=== PATIENT | male | born 1980 | race Caucasian/White ===

== ENCOUNTER 2017-07-09 00:51 | Emergency (ER) | payer OTHER ==
[2017-07-09 01:28] VITALS: BP 121/82; PULSE 85; TEMP 98.1; BMI 22.0
--- NOTE | 2017-07-09 02:12 | PDOC ---
Attending Attestation - Resident Resident Name: Rayna Byers - ED Attending Attestation I have performed the following: I have examined & evaluated the patient, The case was reviewed & discussed with the resident, I agree w/resident's findings & plan, Exceptions are as noted - HPI HPI: 07/09/17 02:07 Hemorrhoid - Physicial Exam PE: 07/09/17 02:07 Thrombosed Hemorrhoids, Large - Medical Decision Making 07/09/17 02:[address] Byers's Assessment and Plan Discharge Disposition - Discharge Dispostion Condition at time of disposition: Fair - Prescriptions Prescriptions: Oxycodone HCl/Acetaminophen [Percocet 5-325 mg Tablet] 1 - 2 tab PO Q4H #20 tablet MDD 6 Hydrocortisone/Pramoxine [Proctofoam-Hc Foam] 10 gm RC QID #2 foam Ondansetron [Zofran *Odt*] 8 mg SL TID #30 od.tablet - Patient Instructions Printed Discharge Instructions: DI for Hemorrhoids Additional Instructions: Paty- Sorry this happened to you .... it hurts! Follow up with General Surgery..... Call [phone] and ask for the next available appointment. Off work for a few days. Sits Baths, shallow tub with warm water- preparation H Proctofoam Percocet and Zofran I hope you are feeling better really soon- Dr. Jorge Posada - Post Discharge Activity Work/School Note: Back to Work
--- NOTE | 2017-07-09 02:16 | PDOC ---
History of Present Illness - General Chief Complaint: Hemorrhoids Stated Complaint: BLOOD IN STOOL Time Seen by Provider: 07/09/17 01:33 History Source: Patient Exam Limitations: No Limitations - History of Present Illness Initial Comments: 36yo M with no significant PMH presents c/o hemorrhoid. Pt reports rectal pain radiating up back and down to hips started yesterday and has been getting worse. He rates the pain 12/10. He took Ibuprofen last night which did not relieve the pain. Family history of brothers and father with hemorrhoids. Pt denies fever, rectal bleeding, hematochezia. 07/09/17 02:42 Associated Symptoms: denies: chest pain, cough, diaphoresis, fever/chills, headaches, nausea/vomiting, rash, shortness of breath, syncope, weakness Past History - Past Medical History Allergies/Adverse Reactions: Allergies Allergy/AdvReac Type Severity Reaction Status Date / Time No Known Allergies Allergy Verified 07/09/17 01:28 Home Medications: Ambulatory Orders Hydrocortisone/Pramoxine [Proctofoam-Hc Foam] 10 gm RC QID #2 foam 07/09/17 Ondansetron [Zofran *Odt*] 8 mg SL TID #30 od.tablet 07/09/17 Oxycodone HCl/Acetaminophen [Percocet 5-325 mg Tablet] 1 - 2 tab PO Q4H #20 tablet MDD 6 07/09/17 Other medical history: Denies - Surgical History Orthopedic Surgery: Yes (hip replacement 2005) - Family Disease History Family Disease History: Other: Father (hemorrhoid), Brother (hemorrhoid) - Immunization History Immunization Up to Date: No - Psycho/Social/Smoking Cessation Hx Anxiety: No Suicidal Ideation: No Smoking Status: Yes ([facility] 3-4 times per day) Smoking History: Current some day smoker Have you smoked in the past 12 months: Yes Number of Cigarettes Smoked Daily: 0 Information on smoking cessation initiated: No 'Breaking Loose' booklet given: 11/12/14 Hx Alcohol Use: No Drug/Substance Use Hx: No Substance Use Type: None Review of Systems - Review of Systems Constitutional: No: Chills, Diaphoresis, Fever HEENTM: No: Recent change in vision, Ear Pain, Nose Pain, Throat Pain Respiratory: No: Cough, Shortness of Breath, Stridor, Wheezing, Hemoptysis Cardiac (ROS): No: Chest Pain, Edema, Irregular Heart Rate, Palpitations ABD/GI: No: Abdominal Distended, Constipated, Diarrhea, Nausea, Vomiting, Abdominal cramping : No: Burning, Dysuria, Hematuria Neurological: No: Headache, Weakness, Unsteady Gait *Physical Exam - Vital Signs Last Vital Signs Temp Pulse Resp BP Pulse Ox 98.1 F 85 19 121/82 100 07/09/17 01:07/09/17 01:07/09/17 01:07/09/17 01:07/09/17 01:25 - Physical Exam General Appearance: Yes: Nourished, Appropriately Dressed, Moderate Distress ( pt unable to sit or stand still, pt pacing around room during interview) HEENT: positive: EOMI, Normal Voice, Other (moist mucous membranes). negative: Pale Conjunctivae, Scleral Icterus (R), Scleral Icterus (L) Neck: positive: Trachea midline, Supple Respiratory/Chest: positive: Lungs Clear, Normal Breath Sounds. negative: Respiratory Distress, Accessory Muscle Use Cardiovascular: positive: Regular Rhythm, Regular Rate, S1, S2. negative: Murmur Gastrointestinal/Abdominal: positive: Soft. negative: Distended, Guarding, Rebound, Tenderness Rectal Exam: positive: hemorrhoids (external, thrombosed, 2 large hemorrhoids visible spanning from 6 o'clock to 9 o'clock in a counterclockwise manner ( spanning 3/4 of the rectal opening)) Musculoskeletal: positive: Normal Inspection Neurologic: positive: Fully Oriented, Alert, Normal Response, Motor Strength 5/5 Medical Decision Making - Medical Decision Making 36yo M with no significant PMH presents c/o hemorrhoids. Large external, thrombosed hemorrhoids visible on exam. Pt has family history of father and brothers with hemorrhoids. Pt very uncomfortable during exam, pacing around the room 2/2 pain. Pt can go home with prescription for Procto-foam HC for hemorrhoid, Percocet for pain, and Zofran prn for nausea. Pt advised to f/u with General Surgery . 07/09/17 02:56 *DC/Admit/Observation/Transfer Diagnosis at time of Disposition: Hemorrhoids, external, thrombosed - Discharge Dispostion Condition at time of disposition: Fair Admit: No - Prescriptions Prescriptions: Oxycodone HCl/Acetaminophen [Percocet 5-325 mg Tablet] 1 - 2 tab PO Q4H #20 tablet MDD 6 Hydrocortisone/Pramoxine [Proctofoam-Hc Foam] 10 gm RC QID #2 foam Ondansetron [Zofran *Odt*] 8 mg SL TID #30 od.tablet - Referrals Referrals: Jane Spencer MD [Primary Care Provider] - - Patient Instructions Printed Discharge Instructions: DI for Hemorrhoids Additional Instructions: Follow-up with your Primary Care Doctor and see a General Surgeon regarding having these hemorroids removed. Please fill prescription for Proctofoam and apply as directed. Please sit in a shallow tub of warm water with epson's salts (or baking soda) several times a day. Please get Tucks pads from your local drug store and use as directed. Please consider getting a donut pillow to sit on. - Post Discharge Activity Work/School Note: Back to Work
== END 2017-07-09 02:37 | disposition home or self-care (01) ==
LOC: JER 00:51
DX: K64.5 Perianal venous thrombosis (principal); F17.210 Nicotine dependence, cigarettes, uncomplicated
CPT/HCPCS: 99282-25

== ENCOUNTER 2018-04-07 07:22 | Emergency (ER) | payer OTHER ==
[2018-04-07 07:31] VITALS: BP 114/71; PULSE 68; TEMP 97; BMI 22.8
--- NOTE | 2018-04-07 07:48 | PDOC ---
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 Sean Worrell @[facility]) presents to the ED with concern that his anterior neck wound has opened up. Pt states his wound was already beginning to open up last week when he last saw his surgeon and he was prescribed bactrim and amox which he is still taking. This morning when changing his dressing, he noticed the wound was a little bit more open which prompted him to presents the emergency department. Patient denies any fevers, chills, nausea, vomiting, increased redness to the area. He denies any discharge from the wound. Denies any other symptoms of headache, weakness, chest pain, shortness of breath, abdominal pain. Past History - Past Medical History Allergies/Adverse Reactions: Allergies Allergy/AdvReac Type Severity Reaction Status Date / Time No Known Allergies Allergy Verified 04/07/18 07:24 Home Medications: Ambulatory Orders Oxycodone HCl/Acetaminophen [Percocet 5-325 mg Tablet] 1 - 2 tab PO Q4H #20 tablet MDD 6 07/09/17 Amoxicillin/Potassium Clav [Augmentin 875-125 Tablet] 1 each PO ASDIR 04/07/18 Sulfamethoxazole/Trimethoprim [Bactrim Ds -] 1 tab PO BID 04/07/18 COPD: No - Surgical History Orthopedic Surgery: Yes (hip replacement 2005) - Family Disease History Family Disease History: Other: Father (hemorrhoid), Brother (hemorrhoid) - Immunization History Immunization Up to Date: No - Suicide/Smoking/Psychosocial Hx Smoking Status: Yes ([facility] 3-4 times per day) Smoking History: Current some day smoker Have you smoked in the past 12 months: Yes Number of Cigarettes Smoked Daily: 0 Information on smoking cessation initiated: Yes 'Breaking Loose' booklet given: 11/12/14 Hx Alcohol Use: No Drug/Substance Use Hx: No Substance Use Type: None Review of Systems - Review of Systems Comments:: 04/07/18 08:07 GENERAL/CONSTITUTIONAL: No fever or chills. No weakness. HEAD, EYES, EARS, NOSE AND THROAT: No change in vision. No ear pain or discharge. No sore throat. GASTROINTESTINAL: No nausea, vomiting, diarrhea or constipation. GENITOURINARY: No dysuria, frequency, or change in urination. CARDIOVASCULAR: No chest pain or shortness of breath. RESPIRATORY: No cough, wheezing, or hemoptysis. MUSCULOSKELETAL: No joint or muscle swelling or pain. No neck or back pain. SKIN: +wound "opening up" NEUROLOGIC: No headache, vertigo, loss of consciousness, or change in strength/ sensation. ENDOCRINE: No increased thirst. No abnormal weight change. HEMATOLOGIC/LYMPHATIC: No anemia, easy bleeding, or history of blood clots. ALLERGIC/IMMUNOLOGIC: No hives or skin allergy. *Physical Exam - Vital Signs Last Vital Signs Temp Pulse Resp BP Pulse Ox 97 F L 68 18 114/71 100 04/07/18 07:23 04/07/18 07:23 04/07/18 07:23 04/07/18 07:23 04/07/18 07:23 - Physical Exam Comments: 04/07/18 08:08 GENERAL: Awake, alert, and fully oriented, in no acute distress HEAD: No signs of trauma EYES: PERRLA, EOMI, sclera anicteric, conjunctiva clear ENT: Auricles normal inspection, hearing grossly normal, nares patent, oropharynx clear without exudates. Moist mucosa NECK: Normal ROM, supple, no lymphadenopathy, JVD, or masses LUNGS: Breath sounds equal, clear to auscultation bilaterally. No wheezes, and no crackles HEART: Regular rate and rhythm, normal S1 and S2, no murmurs, rubs or gallops ABDOMEN: Soft, nontender, normoactive bowel sounds. No guarding, no rebound. No masses EXTREMITIES: Normal range of motion, no edema. No clubbing or cyanosis. No cords, erythema, or tenderness NEUROLOGICAL: Normal speech, cranial nerves intact, negative pronator drift, 5/ 5 strength in all 4 extremities, normal sensation to light touch in all 4 extremities, normal cerebellar exam, normal gait, normal reflexes and tone SKIN: Right anterior neck just lateral to the midline with 2cm linear dehisced wound with erythema about the edges. Inside of wound with dry fibrinous exudate. No surrounding erythema outside the edges. No induration or fluctuance ED Treatment Course - LABORATORY CBC & Chemistry Diagram: 04/07/18 08:12 04/07/18 08:12 Medical Decision Making - Medical Decision Making 04/07/18 08:14 37yo M presents to the ED with concern for wound dehiscence. Labs wnl. No evidence of systemic infection, possible localized wound infection despite bactrim/amox. Case discussed with patients surgeon Dr. Perez ([phone]) who was sent a picture with no pt identifiers with patient's permission. Dr. Perez would like labs sent including ESR/CRP as well as wound culture. Will call back when labs have returned. 04/07/18 10:44 No leukocytosis. ESR/CRP elevated. Called Dr. Almazan, awaiting call back to discuss. Pt is stable. 04/07/18 11:37 Still awaiting call from Dr. Perez. Pt does not want to wait any longer. REcommended to patient to wait in case Dr. Perez wants to change antibiotics or have him transferred. He understands the risks of leaving before a final plan is set including worsening infection, sepsis, organ failure, disability or . He refuses to stay. Will call him with plan once Dr. Perez calls me back. I discussed the physical exam findings, ancillary test results and diagnoses with the patient. I answered all of the patient's questions. The patient was satisfied with the care received and felt comfortable with the discharge plan and treatment plan. The patient will call their primary care physician within 24 hours to arrange follow-up and will return to the Emergency Department with any new, persistent or worsening symptoms. 04/07/18 13:45 Received call back from Dr. Worrell, pt has plastics follow up arranged on Saturday. States likely superficial infection but would like him to complete the current course of abx with no changes. Callled pt to discuss, he will follow up with plastics as arranged. *DC/Admit/Observation/Transfer Diagnosis at time of Disposition: Wound infection after surgery - Discharge Dispostion Disposition: HOME Condition at time of disposition: Stable - Referrals - Patient Instructions Printed Discharge Instructions: DI for Wound Infection Additional Instructions: We will call you with further instruction as soon as we hear back from your surgeon. Follow-up with Dr. Perez today or tomorrow for your infection. He also will call you for follow up. Return to the emergency room immediately if you have any new, worsening or concerning symptoms. - Post Discharge Activity - Attestations Physician Attestion: 04/07/18 11:43 I, Dr. Tu Cleveland MD, attest that this document has been prepared under my direction and personally reviewed by me in its entirety. I further attest, that it accurately reflects all work, treatment, procedures and medical decision -making performed by me.
[2018-04-07 09:35] LABS: BASO % 0.8 % (0-2.0); HEMATOCRIT 43.4 % (35.4-49); HEMOGLOBIN 14.9 GM/dl (11.7-16.9); LYMPH % 41.8 % (8-40); MCH 29.4 pg (25.7-33.7); MCHC 34.2 g/dl (32.0-35.9); MEAN PLT VOLUME 10.9 fl (7.5-11.1); MONO % 5.5 % (3.8-10.2); NEUT % 49.9 % (42.8-82.8); PLATELET COUNT 267 K/MM3 (134-434); RBC 5.05 M/mm3 (4.00-5.60); RDW 12.4 % (11.9-15.9); WHITE BLOOD COUNT 7.7 K/mm3 (4.0-10.8)
[2018-04-07 10:06] LABS: ALBUMIN 4.2 g/dl (3.5-5.0); ALK PHOS 46 U/L (32-92); ANION GAP 8 (8-16); BLOOD UREA NITROGEN 14 mg/dl (7-18); CHLORIDE 100 mmol/L (98-107); CO2 26 mmol/L (22-28); GLUCOSE,RANDOM 87 mg/dl (74-106); POTASSIUM 4.2 mmol/L (3.5-5.1); SGOT/AST 17 U/L (10-42); SGPT/ALT 19 U/L (10-40); SODIUM 134 mmol/L (136-145); TOT PROT 7.9 g/dl (6.4-8.3)
[2018-04-07 10:14] LABS: BILIRUBIN,TOTAL < 0.5 mg/dl (0.2-1.0)
== END 2018-04-07 11:45 | disposition home or self-care (01) ==
LOC: FER 07:22
DX: L08.9 Local infection of the skin and subcutaneous tissue, unspecified (principal)
CPT/HCPCS: 36415; 80053; 85025; 85651; 86140; 87070; 87205; 99283-25